=== PATIENT | female | born 1960 | race Caucasian/White ===

== ENCOUNTER → 2017-05-12 | Outpatient (CLI) | payer OTHER ==
--- NOTE | ~2017-05-12 | US6 ---
[facility] A Service of [facility] RADIOLOGY TEXT RESULTS PATIENT: ARTURO CHAUDHARY LOCATION: [facility] : 64 UNIT #: [id number] AGE: [address]: Abdon Gutierrez MD SEX: F ORDER DR: [id number] [place], [place] [address] [id number] O MR#: [id number] Acc #: [id number] NAME: ARTURO CHAUDHARY : 1960 SEX: F STUDY DATE/TIME: 05/12/2017 7:47 UNIT: [facility] ROOM: STUDY DESCRIPTION: US Abdominal Limited Attending Physician: Abdon Gutierrez M.D. Referring Physician: Abdon Gutierrez M.D. Ordering Physician: Abdon Gutierrez M.D. Primary Care Physician: Abdon Gutierrez M.D. MEDICAL IMAGING REPORT This report is preliminary unless electronic signature is present EXAM Right upper quadrant ultrasound INDICATIONS Intermediate pain for 3 months generalized to the epigastrium. TECHNIQUE Iglesias-scale and color Doppler sonographic images were obtained o through the right upper quadrant. FINDINGS Visualized portions of the pancreas appear unremarkable. Liver is homogeneous in echotexture and measures within normal size limits. I do not see any intra or extrahepatic biliary dilatation. No focal hepatic lesions are seen. Right kidney is normal in appearance with no solid or cystic renal masses identified and no hydronephrosis identified. There is no gallbladder wall thickening or pericholecystic fluid. No stones or sludge are seen within the gallbladder. IMPRESSION Normal right upper quadrant ultrasound. Dictated by... Lien Bauman M.D. THIS IS AN ELECTRONICALLY VERIFIED REPORT Lien Bauman M.D. at 05/13/2017 5:41 PM AFF/to TD: 05/12/2017 19:14 JOB #: [id number] MEDICAL IMAGING REPORT [facility] A Service [facility] RADIOLOGY TEXT RESULTS PATIENT: ARTURO CHAUDHARY LOCATION: [facility] : 64 UNIT #: [id number] AGE: [address]: Abdon Gutierrez MD SEX: F ORDER DR: Page 1 of 1 COPY
[2017-05-12 08:12] LABS: URINE APPEARANCE CLEAR; URINE BILIRUBIN NEG (NEG); URINE BLOOD TRACE (NEG); URINE COLOR YELLOW; URINE GLUCOSE NEG (NEG); URINE KETONE NEG (NEG); URINE LEUKOCYTE ESTERASE 1+ (NEG); URINE NITRATE NEG (NEG); URINE PROTEIN NEG (NEG); URINE SPECIFIC GRAVITY 1.015 (1.003-1.035); URINE UROBILINOGEN 0.2 MG/DL (NEG)
[2017-05-12 08:14] LABS: CULTURE INDICATED? YES; U HYALINE CASTS AUWI 0-2 /[LPF]; URBCS1 AUWI 0-2 /[HPF] (0-2); URINE BACTERIA AUWI NEG (NEGATIVE); URINE SQUAMOUS EPITHELIAL CELL NONE SEEN /[HPF]
[2017-05-12 08:16] LABS: URINE SOURCE CLEAN CATCH
== END | disposition home or self-care (01) ==
LOC: CGUS 07:14
PROVIDERS: General Practice
DX: R10.11 Right upper quadrant pain (principal)
CPT/HCPCS: 76705; 81003; 87086